=== PATIENT | male | born 1945 | race Caucasian/White ===

== ENCOUNTER 2018-06-04 19:11 | Emergency (ER) | payer OTHER ==
--- NOTE | 2018-06-04 20:46 | EDM.PDOC ---
ED HPI GENERAL MEDICAL PROBLEM - General Chief Complaint: Skin Complaint Stated Complaint: INFECTION ON LEFT PINKY FINGER Time Seen by Provider: 06/04/18 19:44 Source of Information: Reports: Patient History Limitations: Reports: No Limitations - History of Present Illness INITIAL COMMENTS - FREE TEXT/NARRATIVE: Chief complaint: finger infection, getting worse. this is a 72 year old male present to ER for left pinky finger infection. He reports started as a hang nail, pulled that out, then finger got red, swollen and drainage noted. This evening he noted a red streak along the finger, not into hand yet. denies any diabetes, fever, chills, finger pain or other concerns. 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 Treatments (has been soaking in peroxide and keeping it covered.) Left Finger-Little Pain Score (Numeric/FACES): 5 - Related Data Allergies Allergy/AdvReac Type Severity Reaction Status Date / Time environmental Allergy Other Uncoded 06/04/18 20:33 Home Meds: Home Meds Aspirin [Halfprin] 81 mg PO DAILY 01/22/18 [History] Fluticasone Propionate [Flonase] 1 spray NASBOTH DAILY 01/22/18 [History] Past Medical History HEENT History: Reports: Allergic Rhinitis, Hard of Hearing Gastrointestinal History: Reports: Colon Polyp, GERD, Hemorrhoids Musculoskeletal History: Reports: Fracture Neurological History: Reports: Concussion Psychiatric History: Reports: Anxiety Oncologic (Cancer) History: Reports: Basal Cell Carcinoma - Past Surgical History HEENT Surgical History: Reports: Oral Surgery Other HEENT Surgeries/Procedures: wisdom teeth GI Surgical History: Reports: Colonoscopy Social & Family History - Family History Family Medical History: Noncontributory - Tobacco Use Smoking Status *Q: Never Smoker Second Hand Smoke Exposure: No - Caffeine Use Caffeine Use: Reports: Coffee - Alcohol Use Days Per Week of Alcohol Use: 7 Number of Drinks Per Day: 3 Total Drinks Per Week: 21 - Recreational Drug Use Recreational Drug Use: No ED ROS GENERAL - Review of Systems Review Of Systems: See Below Constitutional: Reports: Other (no symptom except for red swollen finger) Skin: Reports: Wound, Change in Color Neurological: Reports: No Symptoms Hematologic/Lymphatic: Reports: No Symptoms Immunologic: Reports: No Symptoms ED EXAM, SKIN/RASH Exam: See Below Exam Limited By: No Limitations General Appearance: Alert, WD/WN, No Apparent Distress Head: Atraumatic, Normocephalic Neck: Supple Respiratory/Chest: No Respiratory Distress, Lungs Clear, Normal Breath Sounds Cardiovascular: Regular Rate, Rhythm, No Murmur Extremities: Redness (left 5th finger with redness, edema and drainage) Neurological: No Motor/Sensory Deficits Psychiatric: Normal Affect, Normal Mood Skin: Warm, Erythema (left 5th finger) Characteristics: Erythematous (left 5th finger) Associated features: Warmth, Inflammation, Weeping Course - Vital Signs Last Recorded V/S: Last Vital Signs Temp 36.1 C 06/04/18 20:37 Pulse 89 06/04/18 20:37 Resp 16 06/04/18 20:37 BP 138/102 H 06/04/18 20:37 Pulse Ox 98 06/04/18 20:37 - Re-Assessments/Exams Free Text/Narrative Re-Assessment/Exam: 06/04/18 will start antibiotic tonight, discussed apply bandage advise to follow up in Primary Care for recheck return to ER if not improved or symptoms worsen. Departure - Departure Time of Disposition: 20:42 Disposition: Home, Self-Care 01 Condition: Good Clinical Impression: Cellulitis and abscess of finger, unspecified, Cellulitis, Paronychia of finger of right hand - Discharge Information *PRESCRIPTION DRUG MONITORING PROGRAM REVIEWED*: Not Applicable *COPY OF PRESCRIPTION DRUG MONITORING REPORT IN PATIENT HI: Not Applicable Instructions: Paronychia, Cellulitis, Adult, [id number] Referrals: Adryan Salomon MD [Primary Care Provider] - Forms: ED Department Discharge Care Plan Goals: Finger infection: cellulitis, paronychia -start tonight, Keflex 500mg take one capsule 3 times a day til gone -may apply antibiotic creme to nail area and coverage with bandage -finger check in 3 to 4 days return to ER if not improved or symptoms worsen. - Problem List & Annotations (1) Cellulitis and abscess of finger, unspecified SNOMED Code(s): 737137496 Code(s): L03.019 - CELLULITIS OF UNSPECIFIED FINGER; L02.519 - CUTANEOUS ABSCESS OF UNSPECIFIED HAND Status: Acute Priority: High (2) Paronychia of finger of right hand SNOMED Code(s): 237021935 Code(s): L03.011 - CELLULITIS OF RIGHT FINGER Status: Acute Priority: High - Problem List Review Problem List Initiated/Reviewed/Updated: Yes - Assessment/Plan Plan: Finger infection: cellulitis, paronychia -start tonight, Keflex 500mg take one capsule 3 times a day til gone -may apply antibiotic creme to nail area and coverage with bandage -finger check in 3 to 4 days return to ER if not improved or symptoms worsen.
== END 2018-06-04 20:53 | disposition home or self-care (01) ==
LOC: JP.ED 19:11
DX: L02.512 Cutaneous abscess of left hand (principal); L03.011 Cellulitis of right finger; Z91.048 Other nonmedicinal substance allergy status; Z79.82 Long term (current) use of aspirin
CPT/HCPCS: 99283